=== PATIENT | female | born 1940 | race Caucasian/White ===

== ENCOUNTER 2022-03-02 14:29 | Observation (INO) | payer MEDICARE, OTHER ==
[~2022-03-02] VITALS: Ht 167.6 cm; Wt 132.5 kg
[~2022-03-02 14:29] MED LIST: ACIPHEX20 MG PO; ASPIRIN E.C. 8181 MG PO; BYDUREON P2 MG/0.65; COLACE 100100 MG/CAP PO; ISOPTIN SR240 MG PO; LASIX 20MG TABL20 MG PO; MULTI VITAMINS1 TAB PO; NORCO 325 MG-51 TAB PO; NOVOLOG MIX 70/10 ML SQ; PYRIDIUM200 M1 PO; RYTHMOL SR425 MG PO; TRICOR 48MG48 MG PO; TYLENOL 500MG500 MG PO
--- NOTE | 2022-03-02 16:48 | NUR ---
PT ARRIVED TO FLOOR, SHINGLES OUTBREAK VISUALIZED ON BUE AND L RIB CAGE AND UNDER L BREAST. SOME LESIONS CRUSTED OVER, OTHERS BLISTERED. ASSESSMENT PERFORMED, PT C/O BURNING ON LESION SITES. WATER PROVIDED, PT ON 1.5L OF O2 VIA NC
[2022-03-02] MEDS ORDERED: ASPIRIN 81M81 MG/TA2 PO (17:08)
[2022-03-02 17:22] LABS: HEMOGLOBIN 11.1 g/dl (12.5-16.0); MEAN CELL VOLUME 79 fl (80.0-100.0); MEAN CORPUSCULAR HEMOGLOBIN 25 pg (27-31); MEAN CORPUSCULAR HGB CONC 31 g/dl (33.0-37.0); MEAN PLATELET VOLUME 11.1 fl (7.4-10.4); PLATELET COUNT 206 K/mm3 (130-400); RED BLOOD COUNT 4.49 M/mm3 (4.10-5.30)
[2022-03-02 17:31] LABS: HEMATOCRIT 35.4 % (37.0-47.0)
[2022-03-02 17:38] LABS: INR 1.2 (0.8-3.0); PROTHROMBIN TIME 13.5 SECONDS (9.7-12.8)
[2022-03-02 17:41] LABS: PARTIAL THROMBOPLASTIN TIME 67.9 SECONDS (26.0-37.0)
[2022-03-02 17:43] LABS: MAGNESIUM 1.9 mg/dL (1.6-2.6); POTASSIUM 4.9 mmol/L (3.5-4.5)
[2022-03-02 17:53] VITALS: BP 130/68; PULSE 99; TEMP 98.1
[2022-03-02] MEDS ORDERED: CALCITRIOL PO (18:01)
[2022-03-02] MEDS ORDERED: MAG-OX 400400 MG/TAB PO (18:02)
[2022-03-02] MEDS ORDERED: DEMADEX 20MG20 M1 PO (18:02)
[2022-03-02] MEDS ORDERED: KLOR-CON SPRIN10 MEQ PO (18:03)
[2022-03-02] MEDS ORDERED: COREG 25MG25 MG/TAB PO (18:03)
[2022-03-02 18:04] LABS: THYROID STIMULATING HORMONE 1.01 uIU/mL (0.350-4.940)
[2022-03-02] MEDS ORDERED: NOVOLIN 70/30 710 ML SQ (18:04)
--- NOTE | 2022-03-02 18:45 | NUR ---
HEPARIN STARTED ON PT, HEPXA ORDER PLACED FOR MIDNIGHT. MED REC COMPLETED, PT EATING DINNER, NOT COMPLAINING OF DISCOMFORT AT LESION SITE AT THIS TIME
[2022-03-02 21:17] VITALS: BP 95/63; PULSE 95; TEMP 97.8
[2022-03-02 21:37] VITALS: BP 134/59; PULSE 94
--- NOTE | 2022-03-02 23:40 | NUR ---
CONTINUES ON HEPARIN GTTS PENDING HEP XA AROUND 1230. CONTNIUES WITH OXYGENATION AT 2L VIA NC. DENIES ANY CHEST PAIN, PATIENT TO HAVE CARDIOVERSION IN AM NPO [place]. REMAINS ON TELE A-FIB 90'S. FR 1500. ALSO NOTIFIED CHILD PSYCHIATRIST IN REGARDS TO SHINGLES TO LEFT BREAST AXILLARY AREA PATIENT TO START ON GABAPENTIN FOR NERVE PAIN. WILL CONTINUE TO MONITOR FOR ANY CHANGES.
[2022-03-03 00:34] VITALS: BP 115/52; PULSE 97; TEMP 97.6
[2022-03-03 04:37] VITALS: BP 101/57; PULSE 96; TEMP 97.6
--- NOTE | 2022-03-03 05:23 | NUR ---
AROUND 1230AM PATIENT CONVERTED SINUS RYTHM EKG ORDERED WITHIN CHART, SHOWING SINUS RYTHMN WITH FIRST DEGREE BLOCK. DENIES ANY CHEST PAIN. PATIENT TO START ON GABAPENTIN FOR SHINGLES TO LEFT AXILLARY BREAST AREA. REMAINS ON AIRBORNE PRECUATIONS. TECH ASSIST WITH ROSIE CARE AND REPLACED PURE WIC. NEXT HEPXA AROUND 0706. WILL CONTINUE TO MONITOR.
[2022-03-03 08:47] VITALS: BP 127/95; PULSE 97; TEMP 97.9
[2022-03-03 08:51] LABS: ALBUMIN 3.2 gm/dL (3.4-4.8); BILIRUBIN,TOTAL 0.7 mg/dL (0.2-1.2); CALCIUM 8.7 mg/dL (8.4-10.2); CREATININE, serum 2.16 mg/dL (0.57-1.11); POTASSIUM 4.5 mmol/L (3.5-4.5); TOTAL PROTEIN 6.3 gm/dL (6.2-8.1)
[2022-03-03 09:41] LABS: TROPONIN-I 0.065 ng/mL (0.00-0.033)
--- NOTE | 2022-03-03 09:56 | NUR ---
CRITICAL TROPONIN REPORTED TO BRAIN JOHNS. NO NEW ORDERS AT THIS TIME
[2022-03-03] MEDS ORDERED: ELIQUIS 5MG PO ×3 (10:46→14:59)
[2022-03-03] MEDS ORDERED: CORDARONE200 MG/TAB PO ×3 (10:50→14:59)
[2022-03-03 12:30] VITALS: BP 111/55; PULSE 96; TEMP 97.8
--- NOTE | 2022-03-03 13:13 | NUR ---
Patient currently on airborn precautions. Phone call made to patient in her room. Patient currently reports that she lives in [place]. She is independent with her ADL's and utilizes a walker to assist with mobility. Patient has no home oxygen needs. PCP is Dr. 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 Patient reports that she doesn't have a DPOA-HC estbalished. She has two children, both boys, Belinda [phone] and another son in [place]. Patient's son is going to pick her up this afternoon after he gets off of work. Patient's status being downgraded to OBS. Emailed this to the patient over the phone which she was able to verbalize back to me what it meant. Verbal consent for Louise form obtained, and original placed in the patients chart. Discharge plan: Home
--- NOTE | 2022-03-03 14:38 | NUR ---
WHEN EDUCATING PT ON DISCHARGE INSTRUCTION PT REPORTING USING [facility]. PHARMACY CHANGED IN THE EMAR, [facility] NOTIFIED TO CHANGE WHERE SCRIPTS WERE SENT
--- NOTE | 2022-03-03 17:26 | NUR ---
TELE AND IV REMOVED,URINE CATHETER TO SUCTION DISCONTINUED, DC SUMARY FILE GIVEN TO THE PT WITH THE REQUIRED INSTRUCTION GIVEN, PT VERBALIZE UNDERSTANDING. ESCORTED OUT OF THE UNIT BY THE HOSPITAL HORSE TRAINER.
== END 2022-03-03 17:24 | disposition home or self-care (01) ==
LOC: MEDICAL 14:29
PROVIDERS: Nurse Practitioner; ADMIT Internal Medicine Interventional Cardiology
DX: I48.91 Unspecified atrial fibrillation (principal); I08.3 Combined rheumatic disorders of mitral, aortic and tricuspid valves
CPT/HCPCS: G0378; J1644